=== PATIENT | female | born 1950 | race Caucasian/White ===

== ENCOUNTER 2024-07-08 11:48 | Inpatient (IN) | payer MEDICARE ==
[~2024-07-08] VITALS: Ht 154.9 cm; Wt 63.5 kg
[~2024-07-08 11:48] MED LIST: ALTOPREV40 MG PO; ASPIRIN81 MG PO; GLIPIZIDE ER5 MG PO; METOPROLOL SUCC50 MG PO; RAMIPRIL5 MG PO; TIMOPTIC 0.5%1 EACH OD; XARELTO10 MG PO
[2024-07-08] MEDS ORDERED: ACETAMINOPHEN 325 MG TAB PO PRN (20:30)
[2024-07-08 21:00] VITALS: BP 127/80; PULSE 80; RESP 16; TEMP 98.3; O2SAT 100
[2024-07-08 21:48] LABS: BASOPHILS % 0.2 % (0.0-1.0); EOSINOPHILS # (AUTO) 0.2 (0.0-0.4); EOSINOPHILS % 2.1 % (0.0-6.0); HEMATOCRIT 32.8 % (34.2-44.1); HEMOGLOBIN 9.9 g/dL (12.0-16.0); LYMPHOCYTES # (AUTO) 1.4 (1.0-3.2); MEAN CORPUSCULAR HGB CONC 30.2 g/dL (31-35); MEAN CORPUSCULAR VOLUME 86.1 fL (81-99); MONOCYTES # (AUTO) 0.9 (0.2-0.8); MONOCYTES % 9.2 % (4.4-11.3); NEUTROPHILS % 73.2 % (38.7-80.0); PLATELET COUNT 300 x10e3/uL (140-360); RED BLOOD COUNT 3.81 x10e6/uL (3.6-5.1); RED CELL DISTRIBUTION WIDTH 16.4 % (11.7-14.4); WHITE BLOOD COUNT 9.56 x10e3/uL (4.8-10.8)
[2024-07-08 21:51] LABS: ALBUMIN 3.3 g/dL (3.5-5.0); ALBUMIN/GLOBULIN RATIO 0.8 (0.8-2.0); ANION GAP 17.2 mmol/L (8-16); BILIRUBIN,TOTAL 0.2 mg/dL (0.2-1.2); CALCIUM 9.6 mg/dL (8.4-10.2); POTASSIUM 4.2 mmol/L (3.5-5.1); TOTAL PROTEIN 7.3 g/dL (6.5-8.1)
[2024-07-08] MEDS ORDERED: XIGDUO XR 5 MG1 EAC1 (21:56)
[2024-07-08] MEDS ORDERED: XARELTO2.5 MG (21:56)
[2024-07-08] MEDS ORDERED: AUGMENTIN 500-1 EACH PO (21:56)
[2024-07-08 22:00] VITALS: BP 126/70; PULSE 80; RESP 20; TEMP 98.2
[2024-07-08] MEDS ORDERED: ONDANSETRON HCL INJ 2MG/ML 2ML 2 MG/ML VIAL IV PRN (22:30)
[2024-07-08] MEDS ORDERED: MELATONIN 3 MG TAB PO PRN (22:30)
[2024-07-08] MEDS: Vancomycin IV 1 GM in SODIUM CHLORIDE 0.9% 250ML 250 ML IV ONE (22:40)
[2024-07-08 22:51] LABS: CREATININE, SERUM 1.03 mg/dL (0.57-1.11)
[2024-07-08 23:25] VITALS: BP 116/75; PULSE 78; RESP 16; TEMP 98.3; O2SAT 100
[2024-07-09] VITALS (7 sets, daily range): BP systolic 129–167; BP diastolic 52–82; PULSE 79–88; RESP 14–20; TEMP 97.5–99; O2SAT 100
[2024-07-09] MEDS ORDERED: DEXTROSE 50% SYRINGE 50 ML IV PRN (08:45)
[2024-07-09] MEDS: RAMIPRIL 5 MG CAP PO SCH (09:19)
[2024-07-09] MEDS: METOPROLOL SUCCINATE 50 MG TAB XL PO SCH (09:19)
[2024-07-09] MEDS ORDERED: Vancomycin IV 1 GM in SODIUM CHLORIDE 0.9% 250ML 250 ML IV SCH (10:00)
[2024-07-09] MEDS: INSULIN REGULAR, HUMAN 100 UNIT/1 ML SQ SCH (10:55)
[2024-07-09] MEDS: SIMVASTATIN 20 MG TAB PO SCH (20:11)
[2024-07-09] MEDS ORDERED: NON-FORMULARY MEDICATION (Lovastatin (Altoprev) 40 MG) PO SCH (21:00)
[2024-07-09] MEDS: Vancomycin IV 1 GM in SODIUM CHLORIDE 0.9% 250ML 250 ML IV SCH (22:00)
[2024-07-10] VITALS (7 sets, daily range): BP systolic 134–167; BP diastolic 51–72; PULSE 77–80; RESP 16–18; TEMP 97.7–99.6; O2SAT 100
[2024-07-10] MEDS ORDERED: ONDANSETRON HCL 4 MG ORAL DISINTEGRATING TAB PO PRN (09:15)
[2024-07-10] MEDS ORDERED: BUPIVACAINE HCL 0.5% INJ 30 ML VIAL INJ ONE (10:46)
[2024-07-10] MEDS ORDERED: Vancomycin IV 1 GM VIAL ONE (12:09)
[2024-07-10] MEDS ORDERED: DEXAMETHASONE SOD PHOS INJ 4 MG/ML SDV ONE (12:30)
[2024-07-10] MEDS ORDERED: ONDANSETRON HCL INJ 2MG/ML 2ML 2 MG/ML VIAL ONE (12:30)
[2024-07-10] MEDS ORDERED: PROPOFOL IV EMULSION 10 MG/ML 20 ML VIAL ONE (12:30)
[2024-07-10] MEDS ORDERED: ACETAMINOPHEN 1000 MG/100 ML IV ONE (12:30)
[2024-07-10] MEDS ORDERED: LIDOCAINE HCL 2% LOCAL INJ 5 ML SDV VIAL INJ ONE (12:30)
[2024-07-10] MEDS ORDERED: SEVOFLURANE INHAL SOLN 250 ML PEN BTL ONE (12:30)
[2024-07-10] MEDS ORDERED: FENTANYL CITRATE/PF 100MCG/2 ML INJ ONE (13:01)
[2024-07-10] MEDS: ONDANSETRON HCL INJ 2MG/ML 2ML 2 MG/ML VIAL IV ONE (13:07)
[2024-07-10] MEDS ORDERED: ONDANSETRON HCL INJ 2MG/ML 2ML 2 MG/ML VIAL IV PRN (13:30)
[2024-07-10] MEDS: ONDANSETRON HCL INJ 2MG/ML 2ML 2 MG/ML VIAL ONE (14:44)
[2024-07-10] MEDS: RIVAROXABAN 10 MG TABLET PO SCH (18:38)
[2024-07-11] VITALS: BP 148/79; PULSE 76; RESP 16; TEMP 98; O2SAT 100
[2024-07-11 04:00] VITALS: BP 144/62; PULSE 76; RESP 16; TEMP 97.7; O2SAT 100
[2024-07-11 06:46] LABS: BASOPHILS % 0.2 % (0.0-1.0); EOSINOPHILS # (AUTO) 0.1 (0.0-0.4); EOSINOPHILS % 1.2 % (0.0-6.0); HEMATOCRIT 35.2 % (34.2-44.1); HEMOGLOBIN 10.4 g/dL (12.0-16.0); LYMPHOCYTES # (AUTO) 1.4 (1.0-3.2); LYMPHOCYTES % 14.1 % (18.0-39.1); MEAN CORPUSCULAR HEMOGLOBIN 25.4 pg (28-32); MEAN CORPUSCULAR HGB CONC 29.5 g/dL (31-35); MEAN CORPUSCULAR VOLUME 86.1 fL (81-99); MONOCYTES # (AUTO) 0.8 (0.2-0.8); MONOCYTES % 8.3 % (4.4-11.3); NEUTROPHILS # (AUTO) 7.3 (2.1-6.9); NEUTROPHILS % 75.9 % (38.7-80.0); PLATELET COUNT 309 x10e3/uL (140-360); RED BLOOD COUNT 4.09 x10e6/uL (3.6-5.1); RED CELL DISTRIBUTION WIDTH 16.3 % (11.7-14.4); WHITE BLOOD COUNT 9.63 x10e3/uL (4.8-10.8)
[2024-07-11 07:09] LABS: ALBUMIN 3.2 g/dL (3.5-5.0); ALBUMIN/GLOBULIN RATIO 0.9 (0.8-2.0); ANION GAP 13.2 mmol/L (8-16); BILIRUBIN,TOTAL 0.2 mg/dL (0.2-1.2); CALCIUM 9.1 mg/dL (8.4-10.2); CREATININE, SERUM 1.01 mg/dL (0.57-1.11); POTASSIUM 4.2 mmol/L (3.5-5.1); TOTAL PROTEIN 6.9 g/dL (6.5-8.1)
[2024-07-11] MEDS ORDERED: PIPERACILLIN/TAZOBACTAM 3.375 GM VIAL ONE (08:45)
[2024-07-11 08:52] VITALS: BP 158/77; PULSE 77; RESP 20; TEMP 98.6; O2SAT 100
[2024-07-11 09:00] VITALS: BP 158/77; PULSE 77; RESP 20; TEMP 98.6; O2SAT 100
[2024-07-11 12:06] VITALS: BP 156/7; PULSE 80; RESP 20; TEMP 97.5; O2SAT 100
[2024-07-11] MEDS: SODIUM CHLORIDE 0.9% 250ML 250 ML ONE (14:49)
[2024-07-11 20:00] VITALS: BP 139/56; PULSE 83; RESP 17; TEMP 97.7; O2SAT 100
[2024-07-12] VITALS (8 sets, daily range): BP systolic 132–155; BP diastolic 62–71; PULSE 68–83; RESP 17–18; TEMP 97.3–98.4; O2SAT 98–100
[2024-07-12] MEDS: CEFTRIAXONE 2 GM in SODIUM CHLORIDE 0.9% 100 ML IV SCH (14:29)
[2024-07-13 00:31] VITALS: BP 120/57; PULSE 82; RESP 17; TEMP 97.9; O2SAT 100
[2024-07-13 04:00] VITALS: BP 152/61; PULSE 79; RESP 16; TEMP 98.2; O2SAT 100
[2024-07-13 06:18] LABS: BASOPHILS % 0.2 % (0.0-1.0); EOSINOPHILS # (AUTO) 0.2 (0.0-0.4); EOSINOPHILS % 2.1 % (0.0-6.0); HEMOGLOBIN 9.6 g/dL (12.0-16.0); MEAN CORPUSCULAR HEMOGLOBIN 25.8 pg (28-32); MONOCYTES # (AUTO) 0.8 (0.2-0.8); MONOCYTES % 9.8 % (4.4-11.3); NEUTROPHILS # (AUTO) 6.1 (2.1-6.9); NEUTROPHILS % 75.5 % (38.7-80.0); PLATELET COUNT 265 x10e3/uL (140-360); RED BLOOD COUNT 3.72 x10e6/uL (3.6-5.1); RED CELL DISTRIBUTION WIDTH 16.4 % (11.7-14.4); WHITE BLOOD COUNT 8.14 x10e3/uL (4.8-10.8)
[2024-07-13 07:01] LABS: ALBUMIN 3.1 g/dL (3.5-5.0); ALBUMIN/GLOBULIN RATIO 0.9 (0.8-2.0); ANION GAP 14.2 mmol/L (8-16); BILIRUBIN,TOTAL 0.2 mg/dL (0.2-1.2); CALCIUM 8.9 mg/dL (8.4-10.2); CREATININE, SERUM 0.84 mg/dL (0.57-1.11); POTASSIUM 4.2 mmol/L (3.5-5.1); TOTAL PROTEIN 6.7 g/dL (6.5-8.1)
[2024-07-13 07:51] VITALS: BP 136/68; PULSE 87; RESP 16; TEMP 97.2; O2SAT 100
[2024-07-13 08:10] VITALS: BP 136/68; PULSE 87; RESP 16; TEMP 97.2; O2SAT 100
[2024-07-13 11:47] VITALS: BP 154/78; PULSE 84; RESP 18; TEMP 97.9; O2SAT 100
== END 2024-07-13 15:25 | disposition home or self-care (01) | DRG 629 ==
LOC: IMCU 19:46 → MED/SURG 07-09 22:12
PROVIDERS: ADMIT Internal Medicine; ATTEND Internal Medicine
PROC: 0QBN0ZX Excision of Right Metatarsal, Open Approach, Diagnostic (ICD-10-PCS; principal; 2024-07-10 12:11)
PROC: 02HV33Z Insertion of Infusion Device into Superior Vena Cava, Percutaneous Approach (ICD-10-PCS; 2024-07-11)
PROC: 02HV33Z Insertion of Infusion Device into Superior Vena Cava, Percutaneous Approach (ICD-10-PCS; 2024-07-12)
DX: E11.69 Type 2 diabetes mellitus with other specified complication (principal); I50.32 Chronic diastolic (congestive) heart failure; M86.9 Osteomyelitis, unspecified; I11.0 Hypertensive heart disease with heart failure; E11.621 Type 2 diabetes mellitus with foot ulcer; L97.514 Non-pressure chronic ulcer of other part of right foot with necrosis of bone; E11.42 Type 2 diabetes mellitus with diabetic polyneuropathy; E11.51 Type 2 diabetes mellitus with diabetic peripheral angiopathy without gangrene; E78.5 Hyperlipidemia, unspecified; I25.10 Atherosclerotic heart disease of native coronary artery without angina pectoris; Z79.82 Long term (current) use of aspirin; Z79.01 Long term (current) use of anticoagulants; Z79.84 Long term (current) use of oral hypoglycemic drugs; Z95.1 Presence of aortocoronary bypass graft; Z90.49 Acquired absence of other specified parts of digestive tract; Z98.62 Peripheral vascular angioplasty status; Z87.891 Personal history of nicotine dependence
CPT/HCPCS: 36415; 36569; 36584; 71045; 80053; 80202; 82948; 83036; 85025; 85651; 86140; 87040; 87071; 87075; 87205; 88304; 88311; 93041; 93306; 93926; 96372; 99252; C1713; J0696; J1100; J2003; J2405; J2543; J7050

== ENCOUNTER 2024-08-07 13:03 | Outpatient (RCR) | payer MEDICARE ==
[~2024-08-07 13:03] MED LIST changes: +AUGMENTIN 500-1 EACH PO; +XARELTO2.5 MG; +XIGDUO XR 5 MG1 EAC1
[2024-09-09] MEDS ORDERED: REPATHA SY140 MG/1 M IM (11:27)
[2024-09-09] MEDS ORDERED: OZEMPIC2 MG/0.75 SQ (11:27)
== END 2024-08-08 ==
LOC: WCC 13:03
PROVIDERS: ATTEND Internal Medicine Infectious Disease
DX: E11.621 Type 2 diabetes mellitus with foot ulcer (principal); M86.671 Other chronic osteomyelitis, right ankle and foot; L97.514 Non-pressure chronic ulcer of other part of right foot with necrosis of bone; L97.414 Non-pressure chronic ulcer of right heel and midfoot with necrosis of bone
CPT/HCPCS: 36415 ×8; 82948 ×8; 97605 ×4; 99212 ×4; G0277 ×8

== ENCOUNTER → 2024-09-11 | Day surgery (SDC) | payer MEDICARE ==
[2024-09-09 13:59] LABS: BASOPHILS % 0.3 % (0.0-1.0); EOSINOPHILS # (AUTO) 0.2 (0.0-0.4); EOSINOPHILS % 2.1 % (0.0-6.0); HEMATOCRIT 35.1 % (34.2-44.1); HEMOGLOBIN 10.6 g/dL (12.0-16.0); LYMPHOCYTES # (AUTO) 1.2 (1.0-3.2); LYMPHOCYTES % 10.9 % (18.0-39.1); MEAN CORPUSCULAR HEMOGLOBIN 25.5 pg (28-32); MEAN CORPUSCULAR HGB CONC 30.2 g/dL (31-35); MEAN CORPUSCULAR VOLUME 84.6 fL (81-99); MONOCYTES # (AUTO) 0.7 (0.2-0.8); MONOCYTES % 6.8 % (4.4-11.3); NEUTROPHILS # (AUTO) 8.5 (2.1-6.9); NEUTROPHILS % 79.5 % (38.7-80.0); PLATELET COUNT 283 x10e3/uL (140-360); RED BLOOD COUNT 4.15 x10e6/uL (3.6-5.1); RED CELL DISTRIBUTION WIDTH 14.8 % (11.7-14.4); WHITE BLOOD COUNT 10.71 x10e3/uL (4.8-10.8)
[2024-09-09 14:04] LABS: ALBUMIN 3.9 g/dL (3.5-5.0); ALBUMIN/GLOBULIN RATIO 1.1 (0.8-2.0); BILIRUBIN,TOTAL 0.4 mg/dL (0.2-1.2); CALCIUM 9.9 mg/dL (8.4-10.2); CREATININE, SERUM 0.84 mg/dL (0.57-1.11); TOTAL PROTEIN 7.5 g/dL (6.5-8.1)
[~2024-09-11] MED LIST changes: +ACETAMINOPHEN 1000 MG/100 ML 100 ML IV ONE; +DEXAMETHASONE SOD PHOS INJ 4 MG/ML SDV ONE; +LIDOCAINE HCL 2% LOCAL INJ 5 ML SDV VIAL INJ ONE; +ONDANSETRON HCL INJ 2MG/ML 2ML 2 MG/ML VIAL ONE; +OZEMPIC2 MG/0.75 SQ; +PROPOFOL IV EMULSION 10 MG/ML 20 ML VIAL ONE; +REPATHA SY140 MG/1 M IM
[2024-09-11] MEDS: LACTATED RINGER'S 1,000 ML ONE (12:03)
[2024-09-11 13:58] VITALS: TEMP 97.6
[2024-09-11 15:00] VITALS: BP 153/78; PULSE 75; RESP 16; O2SAT 97
== END | disposition home or self-care (01) ==
LOC: OR 10:53
PROVIDERS: ATTEND Podiatrist Foot & Ankle Surgery
DX: M86.9 Osteomyelitis, unspecified (principal); E11.621 Type 2 diabetes mellitus with foot ulcer; L03.115 Cellulitis of right lower limb; I25.10 Atherosclerotic heart disease of native coronary artery without angina pectoris; I10 Essential (primary) hypertension; E78.5 Hyperlipidemia, unspecified; Z01.810 Encounter for preprocedural cardiovascular examination; Z01.812 Encounter for preprocedural laboratory examination; Z01.818 Encounter for other preprocedural examination; Z79.02 Long term (current) use of antithrombotics/antiplatelets; Z79.82 Long term (current) use of aspirin; Z79.84 Long term (current) use of oral hypoglycemic drugs; Z79.85 Long-term (current) use of injectable non-insulin antidiabetic drugs; Z99.3 Dependence on wheelchair
CPT/HCPCS: 15004; 15275; 36415; 71046; 80053; 85025; 93005; 97606; 99252; C1762; J0131; J0690; J1100; J2003; J2405; J2704; J7121; Q4104

== ENCOUNTER → 2024-11-08 | Outpatient (RCR) | payer MEDICARE ==
[~2024-11-08] MED LIST changes: -ACETAMINOPHEN 1000 MG/100 ML 100 ML IV ONE; -DEXAMETHASONE SOD PHOS INJ 4 MG/ML SDV ONE; -LIDOCAINE HCL 2% LOCAL INJ 5 ML SDV VIAL INJ ONE; +MINERAL OIL/PETROLAT/GLYCERI 6OZ BTL ONE; -ONDANSETRON HCL INJ 2MG/ML 2ML 2 MG/ML VIAL ONE; -PROPOFOL IV EMULSION 10 MG/ML 20 ML VIAL ONE
== END ==
LOC: WCC 10-10 14:40
PROVIDERS: ATTEND Nurse Practitioner Family
DX: E11.621 Type 2 diabetes mellitus with foot ulcer (principal); E11.40 Type 2 diabetes mellitus with diabetic neuropathy, unspecified; M86.671 Other chronic osteomyelitis, right ankle and foot; L97.514 Non-pressure chronic ulcer of other part of right foot with necrosis of bone; L84 Corns and callosities
CPT/HCPCS: 11042 ×2; 36415 ×14; 82948 ×14; 87071; 87075; 87205; 97605; 99212 ×4; 99213 ×7; G0277 ×15

== ENCOUNTER → 2024-12-06 | Outpatient (RCR) | payer MEDICARE ==
[2024-11-26 15:46] LABS: BASOPHILS % 0.1 % (0.0-1.0); EOSINOPHILS # (AUTO) 0.1 (0.0-0.4); EOSINOPHILS % 1.7 % (0.0-6.0); HEMATOCRIT 31.3 % (34.2-44.1); HEMOGLOBIN 9.4 g/dL (12.0-16.0); LYMPHOCYTES # (AUTO) 1.3 (1.0-3.2); LYMPHOCYTES % 16.4 % (18.0-39.1); MEAN CORPUSCULAR HEMOGLOBIN 25.1 pg (28-32); MEAN CORPUSCULAR VOLUME 83.5 fL (81-99); MONOCYTES # (AUTO) 0.6 (0.2-0.8); MONOCYTES % 7.9 % (4.4-11.3); NEUTROPHILS # (AUTO) 5.7 (2.1-6.9); NEUTROPHILS % 73.5 % (38.7-80.0); PLATELET COUNT 282 x10e3/uL (140-360); RED BLOOD COUNT 3.75 x10e6/uL (3.6-5.1); RED CELL DISTRIBUTION WIDTH 15.9 % (11.7-14.4); WHITE BLOOD COUNT 7.73 x10e3/uL (4.8-10.8)
[2024-11-26 16:06] LABS: ALBUMIN 3.5 g/dL (3.5-5.0); ALBUMIN/GLOBULIN RATIO 1.1 (0.8-2.0); ANION GAP 18.8 mmol/L (8-16); BILIRUBIN,TOTAL 0.2 mg/dL (0.2-1.2); CALCIUM 9.5 mg/dL (8.4-10.2); CREATININE, SERUM 0.84 mg/dL (0.57-1.11); POTASSIUM 4.8 mmol/L (3.5-5.1); TOTAL PROTEIN 6.7 g/dL (6.5-8.1)
== END ==
LOC: WCC 11-11 09:00
PROVIDERS: ATTEND Podiatrist Foot & Ankle Surgery
DX: E11.621 Type 2 diabetes mellitus with foot ulcer (principal); M86.671 Other chronic osteomyelitis, right ankle and foot; L97.514 Non-pressure chronic ulcer of other part of right foot with necrosis of bone; B96.89 Other specified bacterial agents as the cause of diseases classified elsewhere
CPT/HCPCS: 11042; 36415 ×5; 80053; 82948 ×4; 83036; 84134; 85025; 99212; 99213 ×7; G0277 ×4

== ENCOUNTER 2024-12-27 13:23 | Outpatient (RCR) | payer MEDICARE | END 2025-01-06 | LOC: WCC 13:23 | PROVIDERS: ATTEND Podiatrist Foot & Ankle Surgery | DX: E11.621 Type 2 diabetes mellitus with foot ulcer (principal); L97.514 Non-pressure chronic ulcer of other part of right foot with necrosis of bone | CPT/HCPCS: 11042; 15275; 99212 ×2; 99213 ×2; Q4133 ==

== ENCOUNTER 2025-01-31 12:10 | Outpatient (RCR) | payer MEDICARE ==
[~2025-01-31 12:10] MED LIST changes: -MINERAL OIL/PETROLAT/GLYCERI 6OZ BTL ONE
== END 2025-02-05 ==
LOC: WCC 12:10
PROVIDERS: ATTEND Podiatrist Foot & Ankle Surgery
DX: E11.621 Type 2 diabetes mellitus with foot ulcer (principal); L97.514 Non-pressure chronic ulcer of other part of right foot with necrosis of bone

== ENCOUNTER → 2025-04-29 | Outpatient (REF) | payer MEDICARE | LOC: MRI 09:52 | PROVIDERS: ATTEND Podiatrist Foot & Ankle Surgery | DX: E11.621 Type 2 diabetes mellitus with foot ulcer (principal); M86.171 Other acute osteomyelitis, right ankle and foot ==

== ENCOUNTER 2025-05-05 10:00 | Outpatient (RCR) | payer MEDICARE ==
[~2025-05-05 10:00] MED LIST changes: +MINERAL OIL/PETROLAT/GLYCERI 6OZ BTL ONE
== END 2025-05-08 ==
LOC: WCC 10:00
PROVIDERS: ATTEND Podiatrist Foot & Ankle Surgery
DX: E11.621 Type 2 diabetes mellitus with foot ulcer (principal); L97.514 Non-pressure chronic ulcer of other part of right foot with necrosis of bone

== ENCOUNTER 2025-05-28 10:00 | Outpatient (RCR) | payer MEDICARE ==
[~2025-05-28 10:00] MED LIST changes: -MINERAL OIL/PETROLAT/GLYCERI 6OZ BTL ONE
== END 2025-06-08 ==
LOC: WCC 10:00
PROVIDERS: ATTEND Podiatrist Foot & Ankle Surgery
DX: E11.621 Type 2 diabetes mellitus with foot ulcer (principal); L97.514 Non-pressure chronic ulcer of other part of right foot with necrosis of bone